=== PATIENT | female | born 1955 | race Two or more races ===

== ENCOUNTER 2016-11-13 19:04 | Emergency (ER) | payer BC ==
[~2016-11-13] VITALS: Ht 170.2 cm; Wt 65.8 kg
[2016-11-13] MEDS ORDERED: HYDROmorphone HCL 2 MG/ML VL IV ONE ×2 (19:15→20:15)
[2016-11-13] MEDS ORDERED: ONDANSETRON HCL 4 MG/2 ML VIAL IV ONE (19:15)
[2016-11-13 19:19] VITALS: BP 100/56
[2016-11-13] MEDS ORDERED: HYDROmorphone HCL 2 MG/ML VL ONE (19:44)
== END 2016-11-13 20:35 | disposition home or self-care (01) ==
LOC: ER 19:07 → EEVIPCON 19:07 → ER 20:35
DX: S43.015A Anterior dislocation of left humerus, initial encounter (principal); Z88.0 Allergy status to penicillin; Z88.2 Allergy status to sulfonamides; W01.0XXA Fall on same level from slipping, tripping and stumbling without subsequent striking against object, initial encounter; Y93.89 Activity, other specified; Y92.89 Other specified places as the place of occurrence of the external cause; Y99.8 Other external cause status
CPT/HCPCS: 23650; 73020; 73030; 73060; 96374; 96375; 96376; 99285; J1170; J2405; J7030

== ENCOUNTER → 2024-02-21 | Outpatient (CLI) | payer BC ==
[2024-02-21 09:21] LABS: Urine Bacteria None Seen /hpf (None Seen)
[2024-02-21 09:37] LABS: Basophils # (auto) 0 10 ^3/uL (0-0.2); Basophils % (auto) 0.6 % (0.0-2.0); Eosinophils # (auto) 0.1 10 ^3/uL (0-0.8); Eosinophils % (auto) 1.7 % (0.0-7.0); Lymphocytes # (auto) 1.6 10 ^3/uL (0.4-5.4); Lymphocytes % (auto) 32.6 % (10.0-50.0); Mean Corpuscular Hemoglobin 31.8 pg (28.0-32.0); Mean Corpuscular Hgb Conc. 34.2 g/dL (32.0-36.0); Mean Corpuscular Volume 93.1 fL (80.0-100.0); Monocytes # (auto) 0.4 10 ^3/uL (0-1.3); Monocytes % (auto) 7.5 % (0.0-12.0); Neutrophils # (auto) 2.8 10 ^3/uL (1.6-8.6); Neutrophils % (auto) 57.6 % (37.0-80.0); Nucleated Red Blood Cells % 0.1 %; Red Cell Distribution Width 13.8 % (11.8-14.3); White Blood Cell 4.8 10^3/uL (4.4-10.8)
[2024-02-21 10:05] LABS: Urine Blood Normal /uL (Negative); Urine Clarity CLEAR (Clear); Urine Color Straw (Yellow); Urine Protein, UAD Normal (Negative); Urine Specific Gravity 1.004 (1.001-1.035); Urine Urobilinogen Normal (Negative); Urine WBC <1/HPF /hpf (0 - 5)
[2024-02-21 10:14] LABS: Erythrocyte Sedimentation Rate 8 mm/hr (0-20)
[2024-02-21 10:26] LABS: Protein, Urine < 6.0 mg/dL (0.0-11.9)
[2024-02-21 10:27] LABS: Creatinine, Urine 28.26 mg/dL (30.0-125.0); Urine Protein/Creatinine Ratio 0.21
[2024-02-21 10:30] LABS: Alanine Aminotransferase 18 U/L (7-40); Albumin 4.5 g/dL (3.2-4.8); Alkaline Phosphatase 87 U/L (46-116); Anion Gap 5 (5-15); Aspartate Aminotransferase 20 U/L (13-40); BUN/Creatinine Ratio 8.9 (10.0-20.0); Blood Urea Nitrogen 9 mg/dL (9-23); CRP High Sensitivity 0.09 mg/dL (<1.0); Calcium 9.9 mg/dL (8.7-10.4); Carbon Dioxide 31 mmol/L (20-30); Chloride 106 mmol/L (98-107); Glucose 94 mg/dL (74-106); LDL Cholesterol 146 mg/dL (< 100); Sodium 142 mmol/L (136-145); Triglycerides 140 mg/dL (< 150)
[2024-02-21 10:31] LABS: Bilirubin, Total 0.5 mg/dL (0.2-1.0); Cholesterol 222 mg/dL (< 200); HDL Cholesterol 55 mg/dL (40-59); Total Protein 6.9 g/dL (5.7-8.2)
[2024-02-21 10:38] LABS: Follicle Stimulating Hormone 114.51 IU/L (SEE BELOW); Leuteinizing Hormone 56.7 IU/L
== END | disposition home or self-care (01) ==
LOC: LAB 09:08
PROVIDERS: ATTEND Obstetrics & Gynecology
DX: N95.1 Menopausal and female climacteric states (principal); R53.83 Other fatigue
CPT/HCPCS: 36415; 80053; 80061; 81001; 82306; 82570; 82607; 82670; 83001; 83002; 83036; 84156; 84403; 84443; 85025; 85652; 86141; 87086

== ENCOUNTER → 2024-10-31 | Outpatient (CLI) | payer BC ==
[2024-10-31 09:39] LABS: Urine Bacteria None Seen /hpf (None Seen)
[2024-10-31 09:55] LABS: Basophils # (auto) 0 10 ^3/uL (0-0.2); Basophils % (auto) 0.7 % (0.0-2.0); Eosinophils # (auto) 0.2 10 ^3/uL (0-0.8); Eosinophils % (auto) 5.5 % (0.0-7.0); Hematocrit 40.9 % (36.0-46.0); Hemoglobin 13.8 g/dL (12.2-16.2); Lymphocytes # (auto) 1.3 10 ^3/uL (0.4-5.4); Lymphocytes % (auto) 29.6 % (10.0-50.0); Mean Corpuscular Hemoglobin 30.7 pg (28.0-32.0); Mean Corpuscular Hgb Conc. 33.8 g/dL (32.0-36.0); Mean Corpuscular Volume 90.7 fL (80.0-100.0); Monocytes # (auto) 0.4 10 ^3/uL (0-1.3); Monocytes % (auto) 8.2 % (0.0-12.0); Neutrophils # (auto) 2.5 10 ^3/uL (1.6-8.6); Platelet Count (auto) 238 10^3/uL (140-450); Red Cell Distribution Width 13.5 % (11.8-14.3); White Blood Cell 4.5 10^3/uL (4.4-10.8)
[2024-10-31 10:00] LABS: Urine Amorphous Crystal FEW /hpf (None Seen); Urine Blood Negative /uL (Negative); Urine Clarity Clear (Clear); Urine Color Light-Yellow (Yellow); Urine Protein, UAD Negative (Negative); Urine Specific Gravity 1.012 (1.001-1.035); Urine Squamous Epithelial Cell FEW /hpf (<5); Urine Urobilinogen Normal (Negative); Urine WBC 2 /HPF (0-5); Urine pH 7.5 (5.0-9.0)
[2024-10-31 10:06] LABS: Alanine Aminotransferase 25 U/L (7-40); Albumin 4.4 g/dL (3.2-4.8); Alkaline Phosphatase 87 U/L (46-116); Anion Gap 8 (5-15); Aspartate Aminotransferase 23 U/L (13-40); BUN/Creatinine Ratio 12.4 (10.0-20.0); Bilirubin, Total 0.5 mg/dL (0.2-1.0); Blood Urea Nitrogen 12 mg/dL (9-23); CRP High Sensitivity 0.16 mg/dL (<1.0); Calcium 9.8 mg/dL (8.7-10.4); Carbon Dioxide 28 mmol/L (20-31); Chloride 105 mmol/L (98-107); Glucose 101 mg/dL (74-106); HDL Cholesterol 58 mg/dL (40-59); Potassium 3.8 mmol/L (3.5-5.1); Sodium 141 mmol/L (136-145); Total Protein 6.9 g/dL (5.7-8.2); Triglycerides 107 mg/dL (< 150)
[2024-10-31 10:08] LABS: Cholesterol 222 mg/dL (< 200); LDL Cholesterol 157 mg/dL (< 100)
[2024-10-31 10:33] LABS: Follicle Stimulating Hormone 117.93 IU/L (SEE BELOW); Free T3 3.46 pg/mL (2.3-4.2)
[2024-10-31 10:34] LABS: T3 Total 1.27 ng/mL (0.60-1.81)
[2024-10-31 10:35] LABS: Leuteinizing Hormone 50.2 IU/L
[2024-11-01 08:06] LABS: Estradiol <5.0 pg/mL (0.0-54.7)
[2024-11-01 10:07] LABS: Calcitriol(125 di-OH Vit D) 42.7 pg/mL (24.8-81.5)
[2024-11-01 18:39] LABS: Free T4 (Free Thyroxine) 1.24 ng/dL (0.89-1.76)
== END | disposition home or self-care (01) ==
LOC: LAB 09:13
PROVIDERS: ATTEND Obstetrics & Gynecology
DX: N95.1 Menopausal and female climacteric states (principal); E78.00 Pure hypercholesterolemia, unspecified; R42 Dizziness and giddiness; R53.83 Other fatigue
CPT/HCPCS: 36415; 80053; 80061; 81001; 82652; 82670; 83001; 83002; 83036; 84403; 84439; 84443; 84480; 84481; 85025; 86141; 87086

== ENCOUNTER → 2024-11-07 | Outpatient (CLI) | payer BC ==
[2024-11-07 14:23] LABS: Urine Total Volume, 24 Hours 3000 mL
[2024-11-07 14:32] LABS: Creatinine, Urine 28.31 mg/dL (30.0-125.0)
[2024-11-07 14:34] LABS: Protein, Urine < 6.0 mg/dL (1-14)
[2024-11-07 14:38] LABS: Patient Weight 150 lbs
[2024-11-07 14:39] LABS: Body Surface Area 1.72
== END | disposition home or self-care (01) ==
LOC: LAB 13:02
PROVIDERS: ATTEND Obstetrics & Gynecology
DX: N95.1 Menopausal and female climacteric states (principal); R42 Dizziness and giddiness; E78.00 Pure hypercholesterolemia, unspecified
CPT/HCPCS: 82575; 84156

== ENCOUNTER 2025-01-31 09:10 | Outpatient (CLI) | payer OTHER ==
[2025-01-31 10:11] LABS: Hematocrit 41.2 % (36.0-46.0); Hemoglobin 14.3 g/dL (12.2-16.2); Mean Corpuscular Hemoglobin 31.6 pg (28.0-32.0); Mean Corpuscular Volume 91.2 fL (80.0-100.0); Nucleated Red Blood Cells % 0.0 %
[2025-01-31 10:41] LABS: Alanine Aminotransferase 19 U/L (7-40); Alkaline Phosphatase 84 U/L (46-116); Anion Gap 10 (5-15); BUN/Creatinine Ratio 9.1 (10.0-20.0); Calcium 9.9 mg/dL (8.7-10.4); Carbon Dioxide 27 mmol/L (20-31); Chloride 105 mmol/L (98-107); Glucose 93 mg/dL (74-106); Potassium 3.8 mmol/L (3.5-5.1); Sodium 142 mmol/L (136-145); Total Protein 6.8 g/dL (5.7-8.2); Triglycerides 147 mg/dL (< 150)
[2025-01-31 10:42] LABS: Albumin 4.5 g/dL (3.2-4.8); Blood Urea Nitrogen 9 mg/dL (9-23); Cholesterol 231 mg/dL (< 200); HDL Cholesterol 56 mg/dL (40-59)
[2025-01-31 10:43] LABS: Bilirubin, Total 0.5 mg/dL (0.2-1.0)
[2025-01-31 10:45] LABS: Urine Protein, UAD TRACE (Negative)
== END 2025-01-31 17:00 | disposition home or self-care (01) ==
LOC: LAB 09:10
PROVIDERS: ATTEND Internal Medicine
DX: Z00.01 Encounter for general adult medical examination with abnormal findings (principal)
CPT/HCPCS: 36415; 80053; 80061; 81001; 83036; 84439; 84443; 85025

== ENCOUNTER 2025-02-11 11:20 | Outpatient (CLI) | payer OTHER, BC ==
[2025-02-11 12:05] LABS: Blood Urea Nitrogen 11.0 mg/dL (9-23)
== END 2025-02-11 17:00 | disposition home or self-care (01) ==
LOC: LAB 11:20
PROVIDERS: ATTEND Obstetrics & Gynecology
DX: R91.1 Solitary pulmonary nodule (principal)
CPT/HCPCS: 36415; 82565; 84520; 86141

== ENCOUNTER 2025-04-16 10:43 | Outpatient (CLI) | payer OTHER ==
[2025-04-16] MEDS ORDERED: methylPREDNISolone ACETATE 80 MG/ML VL ONE (11:27)
[2025-04-16] MEDS ORDERED: BUPIVACAINE HCL 0.25% P/F 10 ML VIAL ONE (11:27)
[2025-04-16] MEDS ORDERED: IOHEXOL 300 MG/ML 100ML BOTTLE IJ ONE (11:28)
[2025-04-16] MEDS ORDERED: LIDOCAINE 2%HCL (LOCAL ANESTH.) INJ 10ml MDV ONE (11:28)
--- NOTE | 2025-04-16 13:31 | DVH ---
CT CT R HIP WITH OUT CONTRAST, HISTORY: RIGHT HIP PAIN/OA COMPARISON: XY R HIP COMPLETE XRAY on DOS: 03/28/25 PROCEDURE: Informed consent was obtained. The patient was placed prone on the CT table and the back w as prepped and draped in the usual sterile fashion. The right sacroiliac joint was accessed with a 25 -gauge spinal needle under fluoroscopic guidance. Periarticular position was confirmed with injection of approximately 1 cc of iodinated contrast. Next, a 10-cc mixture of 1 cc of methylprednisolone (80 mg/cc) and 4 cc of Bupivacaine (0.25%) and 5 cc of 2% Lidocaine was then injected without complicati on was injected into the joint with placement confirmed on CT. The needle was removed and hemostasis achieved at the skin surface. The patient tolerated the procedure well without immediate complication . DLP 1002. FINDINGS: Stored CT images show placement of the needle at the inferior posterior right sacroiliac lamar int with Intra-articular injection of contrast. IMPRESSION: Local anesthetic/steroid injection of the right sacroiliac joint, as described above.
== END 2025-04-16 17:00 | disposition home or self-care (01) ==
LOC: CT 10:43
PROVIDERS: ATTEND Internal Medicine
DX: M16.11 Unilateral primary osteoarthritis, right hip (principal); M25.551 Pain in right hip
CPT/HCPCS: 27096; 73700; J1010; J2003; J3490; Q9967; 10005; 77012

== ENCOUNTER 2025-05-21 09:15 | Outpatient (CLI) | payer OTHER ==
[~2025-05-21] VITALS: Ht 160 cm; Wt 68.0 kg
[2025-05-21] MEDS: REGADENOSON 0.4 MG/5 ML SYRG IV ONE ×2 (11:41)
--- NOTE | 2025-05-23 11:48 | DVHSR ---
APPROVED REPORT Exam: Nuclear Stress Test Indication: Chest pain BMI: 0 Stress Test Details Stress Test: Pharmacologic stress testing performed using 0.4 mg of regadenoson per 5 mL given IV over 10 seconds. HR Resting HR: 61 bpm Max Heart Rate (APMHR): 152.270151 bpm Max HR Achieved: 93 bpm Target HR (85% APMHR): 129.842168 bpm % of APMHR: 61.18 Recovery HR: 81 bpm BP Resting BP: 138/75 mmHg Recovery BP: 132/85 mmHg ECG Resting ECG: NSR Clinical Reason for Termination: Completed protocol Nurse Comments Recieved pt. from [facility]. A/Ox4 on RA. Connected to epic trainer, VS stable. Rt IV flushes well. Reviewed POC. Pt. verbalized understanding of procedure including risks and side effects, agrees for stress testing. Lexiscan stress test performed per protocol. [facility] tech administered Cardiolite. Pt. tolerated well. Pt. stable, no change on exam. VS returned to baseline. Transferred to [facility] via AMB. Stress ECG Conclusion lvef65% MINOR septal fixed defect no ischemia ecg shows SR septal q waves NM EXAM: Myocardial Perfusion REST/STRESS Imaging Protocol: Rest Tc-99m/Stress Tc-99m 1 day Resting Data Rest SPECT myocardial perfusion imaging was performed in supine position 60 minutes following the intravenous injection of 10.9 mCi of Tc-99m Sestamibi. Time of rest injection: 09:45 Date: 05/21/2025 Time of rest imagin:45 Date: 05/21/2025 Administration Route: IV Administration Site: Right AC Pharmacologic Stress Pharmacologic stress test was performed by injecting Regadenoson 0.4 mg IV push followed by the intravenous injection of 31.4 mCi of Tc-99m Sestamibi. Time of stress injection: 11:40 Date: 05/21/2025 Time of stress imagin:40 Date: 05/21/2025 Administration Route: IV Administration Site: Right AC Gated Stress SPECT was performed 60 minutes after stress injection. The images were gated to evaluate regional wall motion and calculate left ventricular ejection fraction. Stress only was performed in the Supine position. Nuclear Conclusion Nuclear Findings: negative for ischemia lvef65% MINOR septal fixed defect no ischemia ecg shows SR septal q waves
== END 2025-05-21 17:00 | disposition home or self-care (01) ==
LOC: XYW 09:15
PROVIDERS: ATTEND Internal Medicine
DX: R07.9 Chest pain, unspecified (principal); R47.9 Unspecified speech disturbances
CPT/HCPCS: 78452; 93017; A9500; J2785